=== PATIENT | female | born 1955 | race African-American/Black ===

== ENCOUNTER 2017-12-05 09:30 | Emergency (ER) | payer SELFPAY ==
[2017-12-05 09:39] VITALS: BP 106/63; PULSE 100; TEMP 98.4; BMI 34.8
--- NOTE | 2017-12-05 10:54 | PDOC ---
History of Present Illness - General Chief Complaint: Sore Throat Stated Complaint: WEAKNESS, FEVER Time Seen by Provider: 12/05/17 09:54 History Source: Patient Exam Limitations: No Limitations - History of Present Illness Initial Comments: 12/05/17 10:52 Patient came with brother with complaints of persistent runny nose, sinus congestion, and some intermittent sore throat pain. Was seen by PMD 3 days ago and prescribed ibuprofen and sertraline for ALLERGIC rhinitis. Patient states this had persistent symptoms although has been taking the medications and states this felt feverish but has not states cough with phlegm has productive whitish appearance. 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 Has no exposure to any other ill persons currently. Has no children or grandchildren. Timing/Duration: unsure Severity: mild, moderate Modifying Factors: improves with: medication Associated Symptoms: reports: denies symptoms, cough, fever/chills, malaise Past History - Travel Traveled outside of the country in the last 30 days: No Close contact w/someone who was outside of country & ill: No - Past Medical History Allergies/Adverse Reactions: Allergies Allergy/AdvReac Type Severity Reaction Status Date / Time No Known Allergies Allergy Verified 12/05/17 09:36 Home Medications: Ambulatory Orders Amlodipine Besylate [Norvasc -] 5 mg PO BID 12/05/17 Aspirin [ASA -] 81 mg PO DAILY 12/05/17 Atorvastatin Ca [Lipitor] 20 mg PO HS 12/05/17 Cetirizine HCl 10 mg PO DAILY 12/05/17 COPD: No - Immunization History Immunization Up to Date: Yes - Suicide/Smoking/Psychosocial Hx Smoking History: Never smoked Hx Alcohol Use: No Drug/Substance Use Hx: No Review of Systems - Review of Systems Able to Perform ROS?: Yes Is the patient limited French proficient: Yes Constitutional: Yes: Symptoms Reported HEENTM: Yes: Symptoms Reported Respiratory: Yes: Symptoms reported, See HPI, Cough. No: Wheezing ABD/GI: Yes: See HPI. No: Symptoms Reported Integumentary: Yes: See HPI. No: Symptoms Reported All Other Systems: Reviewed and Negative *Physical Exam - Vital Signs Last Vital Signs Temp Pulse Resp BP Pulse Ox 98.4 F 100 H 18 106/63 95 12/05/17 09:37 12/05/17 09:37 12/05/17 09:37 12/05/17 09:37 12/05/17 09:37 - Physical Exam General Appearance: Yes: Nourished, Appropriately Dressed HEENT: positive: TMs Normal, Pharynx Normal, Nasal Congestion, Rhinorrhea, Sinus Tenderness. negative: Pharyngeal Erythema, Tonsillar Exudate, Tonsillar Erythema Neck: positive: Supple, Lymphadenopathy (R), Lymphadenopathy (L) Respiratory/Chest: positive: Lungs Clear, Normal Breath Sounds Gastrointestinal/Abdominal: positive: Soft. negative: Tender Musculoskeletal: positive: Normal Inspection Extremity: positive: Normal Capillary Refill, Normal Inspection Integumentary: positive: Dry, Warm, Pale Neurologic: positive: acoustical carpenter II-XII NML intact, Fully Oriented, Alert, Normal Response *DC/Admit/Observation/Transfer Diagnosis at time of Disposition: Allergic rhinitis Qualifiers: Allergic rhinitis trigger: other Allergic rhinitis seasonality: unspecified Qualified Code(s): J30.89 - Other allergic rhinitis - Discharge Dispostion Disposition: HOME Condition at time of disposition: Stable Decision to Admit order: No - Referrals - Patient Instructions Printed Discharge Instructions: DI for Allergic Rhinitis Additional Instructions: Rest, drink lots of fluids: Teas, water, soups Saltwater gargles. Consider humidifier in room at night Steamy showers/seem to face break up mucus Avoid contact with allergens, exposure to pollens, close windows on a windy day Lots of handwashing and good hygiene Continue etyl-[id number]-zebmfii medications for symptomatic relief- may use allergic eyedrops for itching I Continue antihistamines daily until pollen season is over; Zyrtec, Claritin, Lulu during the daytime and Benadryl at nighttime as will make sleepy Tylenol or Motrin for fever and pain Followup with private physician in one to 2 days as needed Consider following up with an chief chemist/replenishment merchandising associate for skin testing and possible allergy shots Return to emergency department for worsened symptoms, fevers, dehydration - Post Discharge Activity Forms/Work/School Notes: Back to Work
== END 2017-12-05 10:55 | disposition home or self-care (01) ==
LOC: JERFT 09:30
DX: J30.89 Other allergic rhinitis (principal); Z79.82 Long term (current) use of aspirin
CPT/HCPCS: 99281-25

== ENCOUNTER 2018-10-17 07:07 | Inpatient (IN) | payer OTHER ==
[2018-10-09 13:01] VITALS: BMI 38.7
[~2018-10-17 07:07] MED LIST: CELECOXIB 200 MG CAPSULE PO ONE; GABAPENTIN 300 MG CAPSULE (FP) PO ONE; PANTOPRAZOLE 40 MG TABLET (FP) PO ONE; oxyCODONE HCL 10 MG SUSTAINED ACTING TABLET PO ONE
--- NOTE | 2018-10-17 07:45 | HP ---
Admitting History and Physical - Admission Chief Complaint: left knee osteoarthritis x years History of Present Illness: 63 year old female presents in regard to hes left knee. Patient complains of pain, limited ROM, difficulty ambulating and difficulty completing ADLs. Patient has failed conservative treatment measures including PO medication, injections, activity modification, and exercise programs. At this point, patient would like to proceed with surgical intervention - left total knee arthroplasty. History Source: Patient - Past Medical History Cardiovascular: Yes: HTN, Hyperlipdemia ...: No Musculoskeletal: Yes: Osteoarthritis - Past Surgical History Additional Past Surgical History: See written history & physical. - Smoking History Smoking history: Never smoked Have you smoked in the past 12 months: No - Alcohol/Substance Use Hx Alcohol Use: No Home Medications - Allergies Allergies/Adverse Reactions: Allergies Allergy/AdvReac Type Severity Reaction Status Date / Time No Known Drug Allergies Allergy Verified 10/09/18 12:50 - Home Medications Home Medications: Ambulatory Orders Amlodipine Besylate [Norvasc -] 5 mg PO BID 12/05/17 Aspirin [ASA -] 81 mg PO DAILY 12/05/17 Atorvastatin Ca [Lipitor] 20 mg PO HS 12/05/17 Review of Systems - Review of Systems Musculoskeletal: reports: Crepitus (left knee), Decreased ROM (left knee), Joint Pain (left knee) Physical Examination Constitutional: Yes: Well Nourished, No Distress Eyes: Yes: Conjunctiva Clear HENT: Yes: Atraumatic Neck: Yes: Supple Cardiovascular: Yes: Regular Rate and Rhythm Respiratory: Yes: Regular Gastrointestinal: Yes: Soft ...Rectal Exam: Yes: Deferred Musculoskeletal: Yes: Joint Stiffness (left knee), Joint Swelling (left knee) Assessment/Plan 63 year old female presents in regard to hes left knee. Patient complains of pain, limited ROM, difficulty ambulating and difficulty completing ADLs. Patient has failed conservative treatment measures including PO medication, injections, activity modification, and exercise programs. At this point, patient would like to proceed with surgical intervention - left total knee arthroplasty. Pros, cons, risks, benefits and alternatives of a left total knee arthroplasty was discussed with the patient at length. Patient confirms her understanding and consents to proceed with a left total knee arthroplasty.
[2018-10-17] MEDS ORDERED: SODIUM CHLORIDE 0.9% P/F 10 ML VIAL IJ ONE (07:56)
[2018-10-17] MEDS ORDERED: MIDAZOLAM HCL 2 MG/2 ML SINGLE DOSE VIAL ONE ×2 (07:56→11:13)
[2018-10-17] MEDS ORDERED: BUPIVACAINE LIPOSOME/PF (EXPAREL) 266 MG/20 ML VIAL ONE (07:56)
[2018-10-17] MEDS ORDERED: TRANEXAMIC ACID 1000 MG/10 ML VIAL IVPUSH ONE ×2 (08:00→11:54)
[2018-10-17] MEDS ORDERED: CEFAZOLIN 2 GM in DEXTROSE 5%-WATER - 50 ML IVPB ONE (08:00)
[2018-10-17] MEDS ORDERED: oxyCODONE HCL 10 MG SUSTAINED ACTING TABLET ONE (08:07)
[2018-10-17] MEDS ORDERED: PANTOPRAZOLE 40 MG TABLET (FP) ONE (08:07)
[2018-10-17] MEDS ORDERED: GABAPENTIN 300 MG CAPSULE (FP) ONE (08:07)
[2018-10-17] MEDS ORDERED: CELECOXIB 200 MG CAPSULE ONE (08:08)
[2018-10-17] MEDS ORDERED: TRANEXAMIC ACID 1000 MG/10 ML VIAL ONE ×2 (08:12→08:25)
[2018-10-17] MEDS ORDERED: VANCOMYCIN 1,000 MG VIAL (RESTRICTED TO ID ONLY) ONE (08:13)
[2018-10-17] MEDS ORDERED: ceFAZolin SODIUM 1 GM VIAL ONE ×2 (08:13→08:25)
[2018-10-17] MEDS ORDERED: PROPOFOL 20 ML ONE ×2 (08:25)
[2018-10-17] MEDS ORDERED: ePHEDrine SULFATE 50 MG/1 ML AMPULE ONE (08:25)
[2018-10-17] MEDS ORDERED: SUCCINYLCHOLINE CHLORIDE 200 MG/10 ML VIAL ONE (08:25)
[2018-10-17] MEDS ORDERED: BUPIVACAINE HCL/PF 0.5% (5MG/ML) 10 ML VIAL ONE (09:12)
[2018-10-17] MEDS ORDERED: PHENYLEPHRINE HCL 10 MG/1 ML SINGLE DOSE VIAL ONE (09:32)
[2018-10-17] MEDS ORDERED: VANCOMYCIN 1,000 MG VIAL (RESTRICTED TO ID ONLY) IVPB ONE (11:54)
[2018-10-17] MEDS ORDERED: oxyCODONE HCL 5 MG TABLET PO PRN ×2 (12:06)
[2018-10-17] MEDS ORDERED: ONDANSETRON 4 MG/2 ML VIAL IVPUSH PRN ×2 (12:06→13:14)
[2018-10-17] MEDS ORDERED: LACTATED RINGERS SOLUTION 1,000 ML IV SCH ×2 (12:15→13:15)
[2018-10-17] MEDS ORDERED: MAGNESIUM HYDROX 2400MG/30ML ORAL SUSPENSION 30 ML CUP PO PRN (13:14)
[2018-10-17] MEDS ORDERED: MAG HYDROX/AL HYDROX/SIMETH 30 ML UNIT-DOSE CUP PO PRN (13:14)
[2018-10-17] MEDS ORDERED: KETOROLAC TROMETHAMINE 30 MG/1 ML VIAL IVPUSH SCH (13:15)
[2018-10-17] MEDS ORDERED: traMADol HCL 50 MG TABLET PO SCH (13:15)
[2018-10-17] MEDS: ACETAMINOPHEN 1000 MG/100 ML VIAL (NON FORMULARY) IVPB ONE (13:20)
--- NOTE | 2018-10-17 13:44 | OP ---
Operative Note - Note: Operative Date: 10/17/18 Pre-Operative Diagnosis: Left knee OA Operation: Left TKA Findings: See dictation Post-Operative Diagnosis: Same as Pre-op Surgeon: Rishi Diaz Pad Making Machine Operator: Sandrita Tubbs Anesthesia: Spinal Estimated Blood Loss (mls): 300
[2018-10-17] MEDS: CEFAZOLIN 2 GM/D5W 2 GM/50 ML ML IVPB SCH (17:44)
[2018-10-17] MEDS ORDERED: DEXAMETHASONE SOD PHOSPHATE 10 MG/1 ML VIAL IVPB ONE (20:00)
--- NOTE | 2018-10-17 21:45 | OP ---
DATE OF OPERATION: 10/17/2018 PREOPERATIVE DIAGNOSIS: Left knee osteoarthritis. POSTOPERATIVE DIAGNOSIS: Left knee osteoarthritis. PROCEDURE: Left total knee replacement. ATTENDING: Julieth Pino MD MANUFACTURING GROUP LEADER: JOE Walters ANESTHESIA: Spinal plus sedation. ESTIMATED BLOOD LOSS: 300 mL. COMPLICATIONS: None. DISPOSITION: The patient was transferred to the PACU in stable condition. IMPLANTS USED: [employer] Triathlon size 2 femoral component, size 1 tibial component, 9 mm total stabilized polyethylene component, 29 mm patellar component, two 15-mm acetabular screws. INDICATIONS: This is a 63-year-old female who presented with severe degenerative changes and obvious severe varus deformity of the left knee. She was seen and examined by Dr. Pino in the office and felt to be an appropriate candidate for total knee arthroplasty. The risks, benefits and alternatives to the procedure were explained to the patient and her son, and the patient desired to have the procedure performed. On the day of surgery, the patient was taken to the OR and placed on the OR table. Spinal anesthesia was administered by the anesthesiologist. The patient was then positioned supine on the table and all bony prominences were padded. A tourniquet was placed on the proximal thigh. The left lower extremity was then prepped and draped in the usual sterile fashion and intravenous antibiotics were given for infection prophylaxis. A surgical time-out was then performed with the team, and the patient's identity, procedure, side, availability of implants, and the administration of antibiotics was confirmed. With the knee flexed, a midline incision was made and carried down through the subcutaneous fat to the underlying retinaculum. A medial parapatellar arthrotomy was performed. This was followed by a subperiosteal dissection of the tissue off the proximal and medial tibia. A portion of fat pad was removed from under the patellar tendon, and a small portion of fat was excised off the distal supracondylar femur. The knee was then flexed further and the anterior horn of the lateral meniscus was released from the midline and the anterior cruciate ligament transected. Osteophytes were removed from both the femur and tibia. Grade 4 changes were noted diffusely throughout the knee. There was significant bony erosion, particularly in the medial aspect of the tibia, leaving a significant bone defect. Hohmann retractors were then placed around the distal femur. The starting drill was used to enter the intramedullary canal. The starting point had been chosen by checking the radiographs and anatomy. Proper alignment and intramedullary placement was then confirmed by placing the long narrow dylon into the femur. Next, the distal femoral cutting guide was adjusted and pinned to the femur. The bone resection was assessed using an hubert-wing. An approximately 10-mm distal cut was then made and the cut pieces were measured. Once this was complete, the sizing guide was used to determine which size femoral component should be used. The appropriate 4-in-1 cutting block was then placed at the correct amount of external rotation and pinned in place. Once this was done, Hohmann retractors were used to protect the collateral ligaments, and all appropriate bone cuts were made. Attention was then turned to the tibia. Hohmann retractors were used to translate the tibia anteriorly and protect the collateral ligaments. Medial and lateral menisci were removed. The extramedullary tibial alignment guide was then placed and adjusted for rotation, varus/valgus, and slope. The height of the cutting block was adjusted to the level of the desired bone resection and then pinned in place. The proximal tibia was then cut with a saw and the bone was removed and measured. Once this was completed, much of the damaged tibial bone defect had been removed, but a small portion of defect had remained in the posteromedial corner. The size of the tibia was found to be a size 1 component. The component was pinned in place and we found that just a small portion of the posteromedial aspect of it was unsupported because of the bone defect. We therefore elected to place acetabular screws into the defect so that when the defect was filled with cement, the screws would act to transfer forces like rebar. After drilling and punching the proximal tibia for the keel and stem of the femoral component, the trial femur and trial polyethylene component were placed and soft tissue balance was assessed in both flexion and extension as the knee was taken through a full range of motion. These were found to be appropriate. The knee was stable throughout the full range of motion. The knee was then put into extension and the patella was everted. The synovium around the patella was circumscribed with electrocautery. A caliper was used to measure the patellar thickness and a saw was then used to resect the patella at the chondro-osseous junction. The cut surface was then sized and drilled for the appropriate patellar button, with care taken to medialize it. A trial patella was then placed and the knee was again taken through a full range of motion. The knee was found to have both good balance and good patellar tracking. All bony surfaces were then cleaned with pulsatile lavage and dried. Bone cement was then prepared on the back table, and final components were cemented in place in the usual fashion. Extruded cement was removed. The polyethylene trial was placed, and the knee was put back into extension, and axial pressure was applied for compression while the cement hardened. The patellar button was similarly cemented into place. Once the cement had hardened, the knee was taken through a full range of motion to assess stability, balance, and patellar tracking. These were found to be optimal and the trial polyethylene component was exchanged for the appropriately sized real implant. The wound was then thoroughly irrigated with normal saline. A 3-minute dilute Betadine lavage was performed according to the [place] protocol. Once this was completed, the wound was again thoroughly irrigated with normal saline via pulsatile lavage, and wound closure was begun. Number 1 Vicryl and 0 V-Loc 180 barbed sutures were used to close the arthrotomy. Then 2-0 Vicryl and 2-0 V-Loc 90 sutures were used next in the subcutaneous tissues. The skin was closed using both 3-0 V-Loc 90 suture in a running subcuticular fashion, and also Dermabond skin adhesive. JULIETH PINO M.D. MARIANNA/[id number]
[2018-10-17] MEDS: KETOROLAC TROMETHAMINE 30 MG/1 ML VIAL IVPUSH SCH (22:26)
[2018-10-17] MEDS: ACETAMINOPHEN 325 MG TABLET (FP) PO SCH (22:27)
[2018-10-17] MEDS: traMADol HCL 50 MG TABLET PO SCH (22:27)
[2018-10-17] MEDS: amLODIPine BESYLATE 5 MG TABLET (FP) PO SCH (22:28)
[2018-10-17] MEDS: oxyCODONE HCL 10 MG SUSTAINED ACTING TABLET PO SCH (22:28)
[2018-10-17] MEDS: GABAPENTIN 300 MG CAPSULE (FP) PO SCH (22:28)
[2018-10-17] MEDS: ATORVASTATIN CA 20 MG TABLET (FP) PO SCH (22:28)
[2018-10-17] MEDS: CELECOXIB 200 MG CAPSULE PO SCH (22:28)
[2018-10-17] MEDS: SENNOSIDES/DOCUSATE COMBO (SENNA PLUS) TABLET (UD) PO SCH (22:29)
[2018-10-17] MEDS: ASCORBIC ACID 500 MG TABLET (FP) PO SCH (22:29)
[2018-10-18] MEDS: CEFAZOLIN 2 GM/D5W 2 GM/50 ML ML IVPB SCH (01:24)
[2018-10-18] MEDS: traMADol HCL 50 MG TABLET PO SCH ×4 (03:37→20:21)
[2018-10-18] MEDS: KETOROLAC TROMETHAMINE 30 MG/1 ML VIAL IVPUSH SCH ×2 (03:37→08:51)
[2018-10-18] MEDS: ACETAMINOPHEN 325 MG TABLET (FP) PO SCH ×4 (03:37→20:20)
[2018-10-18 07:42] LABS: HEMATOCRIT 33.3 % (32.4-45.2); MCH 28.9 pg (25.7-33.7); MCHC 33.2 g/dl (32.0-36.0); MEAN CELL VOLUME 87.1 fl (80-96); MEAN PLT VOLUME 7.8 fl (7.5-11.1); PLATELET COUNT 281 K/MM3 (134-434); RBC 3.83 M/mm3 (3.60-5.2); RDW 12.3 % (11.6-15.6); WHITE BLOOD COUNT 7.6 K/mm3 (4.0-10.8)
[2018-10-18 07:51] LABS: CALCIUM 8.9 mg/dl (8.5-10); CREATININE 0.8 mg/dl (0.55-1.3); POTASSIUM 3.9 mmol/L (3.5-5.1)
--- NOTE | 2018-10-18 08:17 | PN ---
Progress Note (short form) - Note Progress Note: ANESTHESIA POSTOP 63 yo female POD#1 s/p L TKA, spinal anesthesia and PNB Patient sitting comfortably in chair. Pain adequately controlled. Tolerating PO. Slept well VSS, Afebrile Continue current care, encouraged IS and ambulation as tolerated and directed by PT and surgical teams.
[2018-10-18] MEDS: ASPIRIN 325 MG TABLET PO SCH (08:52)
[2018-10-18] MEDS: MULTIVITAMINS (DAILY MVI) TABLET (FP) PO SCH (09:41)
[2018-10-18] MEDS: amLODIPine BESYLATE 5 MG TABLET (FP) PO SCH ×2 (09:41→21:27)
[2018-10-18] MEDS: GABAPENTIN 300 MG CAPSULE (FP) PO SCH ×2 (09:41→21:26)
[2018-10-18] MEDS: ASCORBIC ACID 500 MG TABLET (FP) PO SCH ×2 (09:42→21:27)
[2018-10-18] MEDS: oxyCODONE HCL 10 MG SUSTAINED ACTING TABLET PO SCH ×2 (09:42→21:26)
[2018-10-18] MEDS: SENNOSIDES/DOCUSATE COMBO (SENNA PLUS) TABLET (UD) PO SCH ×2 (09:42→21:27)
[2018-10-18] MEDS: CELECOXIB 200 MG CAPSULE PO SCH ×2 (09:42→21:26)
[2018-10-18] MEDS: PANTOPRAZOLE 40 MG TABLET (FP) PO SCH (09:43)
[2018-10-18] MEDS: ATORVASTATIN CA 20 MG TABLET (FP) PO SCH (21:26)
--- NOTE | 2018-10-18 22:21 | PN ---
Progress Note (short form) - Note Progress Note: Pt seen and examined. Doing well. AVSS Selected Entries 10/18/18 10/18/18 14:24 20:29 Temperature 97.4 F L Pulse Rate 72 Respiratory 18 Rate Blood Pressure 105/62 O2 Sat by Pulse 99 Oximetry (%) Oxygen Delivery Room Air Method Laboratory Tests 10/18/18 10/18/18 07:14 07:14 WBC 7.6 Hgb 11.0 Hct 33.3 Plt Count 281 Sodium 135 L Potassium 3.9 Chloride 105 Carbon Dioxide 21 Anion Gap 9 BUN 20.0 H Creatinine 0.8 Gen: NAD LLE: c/d/i, NVID A/P POD#1 s/p L TKA PT/OOB D/C home in AM
--- NOTE | 2018-10-18 22:26 | DS ---
Physical Examination Vital Signs: Vital Signs Temperature 97.4 F L 10/18/18 14:24 Pulse Rate 72 10/18/18 14:24 Respiratory Rate 18 10/18/18 14:24 Blood Pressure 105/62 10/18/18 14:24 O2 Sat by Pulse Oximetry (%) 99 10/18/18 14:24 Labs: CBC, BMP 10/18/18 07:14 10/18/18 07:14 Discharge Summary Reason For Visit: LEFT KNEE DEGENERATIVE JOINT DISEASE Current Active Problems Osteoarthritis of left knee (Acute) Procedures: Principal: Left DANIEL TKA Hospital Course: Admitted for elective surgery. Procedure performed without complications. Pt received postoperative antibiotic prophylaxis and DVT ppx. Ambulated with physical therapy. Stable for discharge home with outpatient followup. Condition: Stable - Instructions Diet, Activity, Other Instructions: Dr. Diaz - Knee Replacement Instructions Keep the Aquacel dressing on until removed by Dr. Diaz in 10-14 days - it is antibacterial and waterproof and you can shower with it on. Call the office for a follow-up appointment with Dr. Diaz in 10-14 days. Take one Aspirin 325mg daily for 6 weeks to prevent blood clots in your legs. After 6 weeks, resume taking your preop dose of 81mg daily. Take one Pantoprazole 40mg daily for 6 weeks to protect against heartburn and ulcers. Take Cephalexin (antibiotic) 3x/day for 10 days to help prevent skin infection. Take Celebrex 200mg twice daily for 30 days to reduce swelling and inflammation. Take a multivitamin, stool softener, and extra Vitamin C supplement daily. For pain: *Mild pain (1-3/10): Take 1 Tramadol tablet every 4 hours as needed. Moderate pain (4-6/10): Take 1 Tramadol tablet and 1 Percocet tablet every 4 hours as needed. Severe pain (7-10/10): Take 1 Tramadol tablet and 2 Percocet tablets every 4 hours as needed. Activity: You can put as much weight on the operative leg as you want. Right after you get home, there will be a physical therapist coming to your house to help you walk around and bend/straighten your knee. After your follow-up appointment, you will be sent for more intensive outpatient physical therapy which will include machines and equipment that the home therapist cannot bring to your house. Always use a walker or cane for balance and to prevent falls. Expect to see swelling/bruising from the operative site all the way down to your toes. The swelling may last several weeks. Wear the compression stocking on the operative side during the day to minimize how much swelling there is in your foot/ankle. Don't wear the stocking at night. You don't have to wear a stocking on the other side. Disposition: VNS/HOME HEALTH CARE - Home Medications Comprehensive Discharge Medication List: Ambulatory Orders Amlodipine Besylate [Norvasc -] 5 mg PO BID 12/05/17 Atorvastatin Ca [Lipitor] 20 mg PO HS 12/05/17 Ascorbic Acid [Vitamin C -] 500 mg PO BID tablet 10/18/18 Aspirin [ASA -] 325 mg PO DAILY@0800 tablet 10/18/18 Celecoxib [CeleBREX -] 200 mg PO BID #60 capsule 10/18/18 Cephalexin Monohydrate [Keflex -] 500 mg PO TID #30 capsule 10/18/18 Multivitamins [Multivit ([facility] Formulary)] 1 tab PO DAILY tab 10/18/18 Oxycodone HCl/Acetaminophen [Percocet 5-325 mg Tablet] 1 - 2 tab PO Q4H PRN #60 tablet MDD 10 10/18/18 Pantoprazole Sodium [Protonix -] 40 mg PO DAILY #40 tablet.ec 10/18/18 Sennosides/Docusate Sodium [Pericolace -] 2 tablet PO BID tablet 10/18/18 traMADol HCL [Ultram -] 50 mg PO Q4H PRN #42 tablet MDD 6 10/18/18
[2018-10-19] MEDS: ACETAMINOPHEN 325 MG TABLET (FP) PO SCH ×2 (01:13→08:50)
[2018-10-19] MEDS: traMADol HCL 50 MG TABLET PO SCH ×2 (04:56→08:51)
[2018-10-19 07:34] VITALS: TEMP 98.5
[2018-10-19] MEDS: ACETAMINOPHEN 1000 MG/100 ML VIAL (NON FORMULARY) IVPB ONE (08:28)
[2018-10-19 08:35] LABS: HEMATOCRIT 30.6 % (32.4-45.2); HEMOGLOBIN 9.8 GM/dl (10.7-15.3); MCH 27.9 pg (25.7-33.7); MCHC 31.8 g/dl (32.0-36.0); MEAN CELL VOLUME 87.8 fl (80-96); MEAN PLT VOLUME 8.6 fl (7.5-11.1); PLATELET COUNT 99 K/MM3 (134-434); RBC 3.49 M/mm3 (3.60-5.2); RDW 12.6 % (11.6-15.6); WHITE BLOOD COUNT 7.5 K/mm3 (4.0-10.8)
[2018-10-19] MEDS: ASPIRIN 325 MG TABLET PO SCH (08:50)
[2018-10-19 10:10] VITALS: BP 113/66; PULSE 83
[2018-10-19] MEDS: amLODIPine BESYLATE 5 MG TABLET (FP) PO SCH (10:13)
[2018-10-19] MEDS: oxyCODONE HCL 10 MG SUSTAINED ACTING TABLET PO SCH (10:13)
[2018-10-19] MEDS: MULTIVITAMINS (DAILY MVI) TABLET (FP) PO SCH (10:14)
[2018-10-19] MEDS: SENNOSIDES/DOCUSATE COMBO (SENNA PLUS) TABLET (UD) PO SCH (10:15)
[2018-10-19] MEDS: PANTOPRAZOLE 40 MG TABLET (FP) PO SCH (10:15)
[2018-10-19] MEDS: CELECOXIB 200 MG CAPSULE PO SCH (10:15)
[2018-10-19] MEDS: ASCORBIC ACID 500 MG TABLET (FP) PO SCH (10:15)
[2018-10-19] MEDS: GABAPENTIN 300 MG CAPSULE (FP) PO SCH (10:15)
--- NOTE | 2018-10-22 16:58 | PATH ---
Surgical Pathology Report Patient Name: GREGG LAUGHLIN Med. Rec. #: [id number] /Age/Gender: 1955 (Age: 63) / F Account: [id number] Location: [facility] MED-SURG Taken: 10/17/2018 Received: 10/17/2018 Reported: 10/22/2018 Physicians: Rishi Diaz M.D. Specimen(s) Received LEFT KNEE BONES Clinical History Left knee degenerative joint disease Final Diagnosis KNEE BONES, LEFT, TOTAL KNEE REPLACEMENT: DEGENERATIVE JOINT DISEASE. Electronically Signed Virginia Amaro M.D. Gross Description Received in formalin labeled "left knee bones," is a 10.5 x 9.5 x 1.5 cm aggregate of miller, irregular portions of bone, consistent with knee bones. There are multiple areas of eburnation present, measuring up to 3.0 cm in greatest dimension. The remaining articular surfaces are miller-yellow and focally granular. The underlying trabecular bone is yellow and hard. Mixer Runner sections are submitted in one cassette, following decalcification. /10/18/2018 [facility]10/18/2018
== END 2018-10-19 11:45 | disposition home health service (06) | DRG 302 ==
LOC: FM/S 07:07
PROVIDERS: ADMIT Student in an Organized Health Care Education/Training Program; ATTEND Student in an Organized Health Care Education/Training Program
PROC: 0SRD069 Replacement of Left Knee Joint with Oxidized Zirconium on Polyethylene Synthetic Substitute, Cemented, Open Approach (ICD-10-PCS; principal; 2018-10-17 09:50)
DX: M17.12 Unilateral primary osteoarthritis, left knee (principal); I10 Essential (primary) hypertension; E78.5 Hyperlipidemia, unspecified
CPT/HCPCS: 36415; 73560-TC-LT-FY; 80048; 85027; 88304-TC; 88311-TC; 94760; 97116-GP; 97163-GP; J0131; J1100

== ENCOUNTER 2018-12-26 09:45 | Inpatient (IN) | payer OTHER ==
[2018-12-16 15:33] VITALS: BMI 38.8
--- NOTE | 2018-12-25 17:12 | HP ---
Admitting History and Physical - Admission Chief Complaint: Right knee osteoarthritis x years History of Present Illness: 63 year old female presents today in regard to her right hknee. Longstanding history of right knee osteoarthritis. Patient complains of pain, limited ROM, difficulty ambulating and difficulty completing ADLs. Patient has failed conservative treatment measures including PO medications, activity modifications , injections and exercise programs. At this point, patient would like to proceed with surgical intervention - right total knee arthroplasty, MAKOplasty. - Past Medical History Cardiovascular: Yes: HTN, Hyperlipdemia Musculoskeletal: Yes: Osteoarthritis - Past Surgical History Additional Past Surgical History: See written history & physical. - Smoking History Smoking history: Never smoked Have you smoked in the past 12 months: No - Alcohol/Substance Use Hx Alcohol Use: No Home Medications - Allergies Allergies/Adverse Reactions: Allergies Allergy/AdvReac Type Severity Reaction Status Date / Time No Known Drug Allergies Allergy Verified 10/09/18 12:50 - Home Medications Home Medications: Ambulatory Orders Amlodipine Besylate [Norvasc -] 5 mg PO BID 12/05/17 Review of Systems - Review of Systems Musculoskeletal: reports: Crepitus (right knee), Decreased ROM (right knee), Joint Pain (right knee), Joint Swelling (right knee) Physical Examination Constitutional: Yes: Well Nourished, No Distress Eyes: Yes: Conjunctiva Clear HENT: Yes: Atraumatic Neck: Yes: Supple Cardiovascular: Yes: Regular Rate and Rhythm Respiratory: Yes: Regular Gastrointestinal: Yes: Soft ...Rectal Exam: Yes: Deferred Musculoskeletal: Yes: Joint Stiffness (right knee), Joint Swelling (right knee) Assessment/Plan 63 year old female presents today in regard to her right hknee. Longstanding history of right knee osteoarthritis. Patient complains of pain, limited ROM, difficulty ambulating and difficulty completing ADLs. Patient has failed conservative treatment measures including PO medications, activity modifications , injections and exercise programs. At this point, patient would like to proceed with surgical intervention - right total knee arthroplasty, MAKOplasty. Pros, cons, risks benefits and alternatives of a right total knee arthroplasty, MAKOplasty was discussed with the patient at length. Patient confirms their understanding and consents to proceed with a right total knee arthroplasty, MAKOplasty.
[~2018-12-26 09:45] MED LIST changes: +TRANEXAMIC ACID 1000 MG/10 ML VIAL IVPUSH ONE
[2018-12-26] MEDS ORDERED: ceFAZolin SODIUM 1 GM VIAL ONE ×3 (11:17→16:36)
[2018-12-26] MEDS ORDERED: VANCOMYCIN 1,000 MG VIAL (RESTRICTED TO ID ONLY) ONE ×2 (11:17→13:24)
[2018-12-26] MEDS ORDERED: MIDAZOLAM HCL 2 MG/2 ML SINGLE DOSE VIAL ONE (11:45)
[2018-12-26] MEDS ORDERED: SODIUM CHLORIDE 0.9% P/F 10 ML VIAL IJ ONE ×2 (11:45→13:32)
[2018-12-26] MEDS ORDERED: BUPIVACAINE LIPOSOME/PF (EXPAREL) 266 MG/20 ML VIAL ONE (11:45)
[2018-12-26] MEDS ORDERED: VANCOMYCIN 1,250 MG in DEXTROSE 5%-WATER - 250 ML IVPB ONE (13:00)
[2018-12-26] MEDS ORDERED: DEXMEDETOMIDINE HCL 200 MCG/2 ML IVPB ONE (13:00)
[2018-12-26] MEDS ORDERED: CEFAZOLIN 2 GM in DEXTROSE 5%-WATER - 50 ML IVPB ONE (13:00)
[2018-12-26] MEDS ORDERED: ePHEDrine SULFATE 50 MG/1 ML AMPULE ONE (13:23)
[2018-12-26] MEDS ORDERED: ONDANSETRON 4 MG/2 ML VIAL IVPUSH PRN ×2 (16:23→19:11)
[2018-12-26] MEDS ORDERED: PROMETHAZINE HCL 25 MG/1 ML VIAL IVPUSH PRN (16:23)
[2018-12-26] MEDS ORDERED: oxyCODONE HCL 5 MG TABLET PO PRN ×2 (16:23)
[2018-12-26] MEDS ORDERED: ACETAMINOPHEN 1000 MG/100 ML VIAL (NON FORMULARY) IVPB ONE ×2 (16:23→19:16)
[2018-12-26] MEDS ORDERED: LACTATED RINGERS SOLUTION 1,000 ML IV SCH ×2 (16:30→19:15)
[2018-12-26] MEDS ORDERED: PROPOFOL 20 ML ONE (17:55)
[2018-12-26] MEDS ORDERED: traMADol HCL 50 MG TABLET ONE (18:48)
[2018-12-26] MEDS ORDERED: KETOROLAC TROMETHAMINE 30 MG/1 ML VIAL ONE (18:48)
[2018-12-26] MEDS: traMADol HCL 50 MG TABLET PO SCH (19:00)
[2018-12-26] MEDS: KETOROLAC TROMETHAMINE 30 MG/1 ML VIAL IVPUSH SCH (19:00)
[2018-12-26] MEDS ORDERED: MAG HYDROX/AL HYDROX/SIMETH 30 ML UNIT-DOSE CUP PO PRN (19:11)
[2018-12-26] MEDS ORDERED: MAGNESIUM HYDROX 2400MG/30ML ORAL SUSPENSION 30 ML CUP PO PRN (19:11)
[2018-12-26] MEDS: SENNOSIDES/DOCUSATE COMBO (SENNA PLUS) TABLET (UD) PO SCH (21:44)
[2018-12-26] MEDS: ASCORBIC ACID 500 MG TABLET (FP) PO SCH (21:44)
[2018-12-26] MEDS: GABAPENTIN 300 MG CAPSULE (FP) PO SCH (21:44)
[2018-12-26] MEDS: CELECOXIB 200 MG CAPSULE PO SCH (21:45)
[2018-12-26] MEDS: oxyCODONE HCL 10 MG SUSTAINED ACTING TABLET PO SCH (21:45)
[2018-12-26] MEDS ORDERED: GABAPENTIN 300 MG CAPSULE (FP) PO SCH (22:00)
[2018-12-27] MEDS: KETOROLAC TROMETHAMINE 30 MG/1 ML VIAL IVPUSH SCH ×3 (01:16→15:00)
[2018-12-27] MEDS: traMADol HCL 50 MG TABLET PO SCH ×4 (01:17→19:02)
[2018-12-27] MEDS ORDERED: VANCOMYCIN HCL 1,250 MG in DEXTROSE 5%-WATER - 250 ML IVPB ONE (02:00)
[2018-12-27] MEDS ORDERED: DEXAMETHASONE SOD PHOSPHATE 10 MG/1 ML VIAL IVPB ONE (03:00)
--- NOTE | 2018-12-27 07:47 | PN ---
Progress Note (short form) - Note Progress Note: ANESTHESIA POST OP 63 YO FEMALE POD#1 S/P TKA, SPINAL ANESTHESIA AND PNB Patient sitting in chair. Pain adequately controlled. No n/v VSS, Afebrile Continue current care. Encouraged IS and active participation in PT. No anesthetic complications
[2018-12-27] MEDS: ASPIRIN 325 MG TABLET PO SCH (07:59)
[2018-12-27 08:01] LABS: HEMATOCRIT 30.3 % (32.4-45.2); HEMOGLOBIN 9.7 GM/dl (10.7-15.3); MCH 27.2 pg (25.7-33.7); MCHC 32.1 g/dl (32.0-36.0); MEAN CELL VOLUME 84.6 fl (80-96); MEAN PLT VOLUME 8.1 fl (7.5-11.1); PLATELET COUNT 246 K/MM3 (134-434); RBC 3.58 M/mm3 (3.60-5.2); RDW 13.6 % (11.6-15.6); WHITE BLOOD COUNT 8.7 K/mm3 (4.0-10.8)
[2018-12-27 08:30] LABS: CALCIUM 8.4 mg/dl (8.5-10); CREATININE 0.7 mg/dl (0.55-1.3); POTASSIUM 3.6 mmol/L (3.5-5.1)
[2018-12-27] MEDS: SENNOSIDES/DOCUSATE COMBO (SENNA PLUS) TABLET (UD) PO SCH ×2 (09:43→22:12)
[2018-12-27] MEDS: GABAPENTIN 300 MG CAPSULE (FP) PO SCH ×2 (09:43→22:13)
[2018-12-27] MEDS: ASCORBIC ACID 500 MG TABLET (FP) PO SCH ×2 (09:43→22:13)
[2018-12-27] MEDS: oxyCODONE HCL 10 MG SUSTAINED ACTING TABLET PO SCH ×2 (09:44→22:13)
[2018-12-27] MEDS: PANTOPRAZOLE 40 MG TABLET (FP) PO SCH (09:44)
[2018-12-27] MEDS: MULTIVITAMINS (DAILY MVI) TABLET (FP) PO SCH (09:44)
[2018-12-27] MEDS: CELECOXIB 200 MG CAPSULE PO SCH ×2 (09:44→22:13)
[2018-12-27] MEDS: amLODIPine BESYLATE 5 MG TABLET (FP) PO SCH (09:46)
--- NOTE | 2018-12-27 10:07 | SPEC ---
DATE OF OPERATION: 12/26/2018 PREOPERATIVE DIAGNOSIS: Right knee osteoarthritis. POSTOPERATIVE DIAGNOSIS: Right knee osteoarthritis. PROCEDURE: Right total knee replacement with MAKOplasty robotic navigation, right knee removal of hardware, right knee patella tendon reinforcement/repair. ATTENDING: Julieth Pino MD GUIDEMAN: JOE White ANESTHESIA: Spinal plus sedation. ESTIMATED BLOOD LOSS: 500 mL. COMPLICATIONS: None. DISPOSITION: The patient was transferred to the PACU in stable condition. IMPLANTS USED: Letty Triathlon size 2 femoral component, Letty Triathlon size 2 tibial component with 50-mm stem and 10-mm medial augment, 29-mm patellar component, 22-mm total stabilized polyethylene component, Marlex hernia repair mesh. INDICATIONS: This is a 63-year-old female who presented to the office with bilateral knee pain and significant varus deformity. She was seen and examined by Dr. Pino and diagnosed with severe osteoarthritis of both knees as well as significant bone erosion and deformity. She underwent a left total knee replacement several months ago and did well postoperatively and had a remarkable recovery. She continued to have severe right knee pain and ambulatory dysfunction. In addition, the right knee was significantly unstable due to significant erosion of the medial tibial plateau as well as chronic injury to the lateral collateral ligament for which she underwent a surgery to place a staple in the ligament in her [place] of [facility] more than 10 years ago. 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 She was initially treated nonoperatively but continued to have severe pain and ambulatory dysfunction. She was, therefore, indicated for a right total knee replacement with MAKOplasty robotic navigation. This would involve reconstruction of the eroded medial tibial condyle as well as removal of the hardware as this would interfere with placement of the total knee replacement. The risks, benefits, and alternatives to the procedure were explained to the patient in great detail as well as to her son, and they both agreed to proceed with the procedure. DESCRIPTION OF PROCEDURE: On the day of surgery, the patient was taken to the operating room and placed on the OR table. Spinal anesthesia was administered by the anesthesiologist. The patient was then positioned supine on the table and all bony prominences were padded. The knee was then prepped and draped in the usual sterile fashion and intravenous antibiotics were given for infection prophylaxis. A surgical time-out was then performed with the team, and the patients identity, procedure, side, availability of implants, and the administration of antibiotics was confirmed. With the knee flexed, a midline incision was made and carried down through the subcutaneous fat to the underlying retinaculum. A medial parapatellar arthrotomy was performed. This was followed by a subperiosteal dissection of the tissue off the proximal, medial tibia. A portion of fat pad was removed from under the patellar tendon, and a small portion of fat was excised off the distal supracondylar femur. Electrocautery and an [employer] bipolar sealing device were used to achieve hemostasis. The knee was then flexed further and the anterior horn of the lateral meniscus was released from the midline. Next, the anterior and posterior cruciate ligaments were transected. Grade 4 changes were noted diffusely throughout the knee. Femoral and tibial checkpoints were then placed in the appropriate location using a mallet. Two parallel bicortical self-drilling pins were placed in the tibial diaphysis after making stab incisions and bluntly dissecting down to bone. Two pins were then placed in the distal supracondylar femur. The Ini[employer] Digital navigation arrays were then attached to both the femoral and tibial pins and the lower extremity was then registered to the robotic navigation device using various joint movements, as well as inputting several dozen reference points. The knee was then taken through a full range of motion with a corrective force applied. Alignment in varus/valgus as well as flexion/extension and soft tissue balance was measured in various positions. The navigation device showed a numerical and graphic representation of the soft tissue balance. The components were repositioned virtually using the software until optimal soft tissue balance was achieved on screen. Once this was accomplished, the final plan was saved and sent to the robot. Self-retaining retractors were then placed at the joint line for exposure and protection of the collateral ligaments. The robot was brought into the sterile field and registered with the navigation device. The robotic arm with attached oscillating saw blade was then used to perform femoral and tibial bone cuts as per the saved software plan. The femoral box cut was made using the appropriately sized manual cutting guide. The knee was then irrigated. Trial components were placed and the knee was taken through a full range of motion to assess soft tissue balance and alignment. The range of motion was found to be excellent and the soft tissue balance was optimal and according to plan. The knee was then put into extension and the patella everted. The synovium around the patella was circumscribed with electrocautery. A caliper was used to measure the patellar thickness and a saw was then used to resect the patella at the chondro-osseous junction. The cut surface was then sized and drilled for the appropriate patellar button, with care taken to medialize it. A trial patella was then placed and the knee was again taken through a full range of motion. The knee was found to have both good balance and good patellar tracking. All of the components were removed except the tibial base plate. The appropriate instrumentation was used to drill and punch the proximal tibia for the keel of the final component. All bony surfaces were then cleaned with pulsatile lavage and dried. Bone cement was then prepared on the back table, and final components were cemented in place in the usual fashion. Extruded cement was removed. The polyethylene trial was placed, the knee was put into extension, and axial pressure was applied for compression while the cement hardened. The patellar button was similarly cemented into place. Once the cement had hardened, the knee was taken through a full range of motion to assess stability, balance, and patellar tracking. This was found to be optimal and the trial polyethylene was exchanged for the appropriately sized real implant. After the tibial cut was made, we noted that a large defect was present in the medial tibial plateau, and the tibial component was largely unsupported on the medial side of the knee. This was too big to fill with cement, so we elected to use a revision component with a 10-mm augment. A 10-mm step cut was made in the medial side of the tibial plateau utilizing the Ini3 Digital robot and software to produce this cut. From here, trial components were assembled, and a 10-mm augment was placed on the trial, and this was found to have good fit and good bony contact, and the tibial component was supported on both the medial and lateral side. The patient had had a previous surgery, and a staple had been placed in the proximal lateral tibia. We determined during trialing for the tibial component that the staple projected into the intramedullary canal and blocked placement of the tibial component of the total knee replacement. Therefore, it would have to be removed. The incision was extended distally, and we undermined subcutaneously along the proximal lateral tibia. An incision was made in the lateral retinaculum of the patellar tendon, and blunt dissection was performed down to bone, and we explored this area and found the staple, which was the anterolateral aspect of the tibia. At no point was the peroneal nerve encountered. We were careful not to damage any soft tissues that appeared to be fragile. For the staple to be removed, we need to make a separate vertical incision through the lateral aspect of the patellar tendon, and once the staple was visualized, osteotomes were used to get under it and then pry it out of the bone, and it was removed in 1 piece without any additional damage to the bone. We did note that there was tearing of the medial aspect of the patellar tendon from all the retraction, and because we had already made a separate incision in the lateral aspect of the tendon in order to remove the staple, there was concern that the tendon was at risk for rupture with ambulation later on. We opted to reinforce the tendon with a Marlex mesh. Marlex rectangular hernia repair mesh was obtained, and it was folded into a long rectangle approximately 3 cm in width, and the edge was sutured with a Vicryl stitch to hold it in this configuration. This was inserted into the tibial canal, and when the tibial component was placed, this was cemented in place under the tibial component and extended out from the proximal tibia and provided an anchor to reinforce the patellar tendon repair. Once components were placed, irrigation was completed, and wound closure was begun. The arthrotomy closure as well as the repair of the damaged portion of the patellar tendon incorporated this Marlex mesh, which was anchored to the tibia, and this provided an underlying reinforcing structure to both take tension off of the patellar tendon and also provide underlying support, which was firmly anchored to the tibia. Because this was a significantly more complicated case than a standard total knee replacement for the reasons outlined above, this case will be billed with a modifier 22. Overall, the surgery took approximately 5 hours, which was significantly longer than the amount of time needed for a standard total knee replacement, and this was due to the extra work involved in the removal of hardware as well as the patellar tendon repair as well as the placement of augments because of the excessive wear and destruction of the proximal tibia. The wound was then thoroughly irrigated with normal saline. A 3-minute dilute Betadine lavage was performed. The knee was again irrigated using a pulsatile lavage device. A periarticular injection was used to locally infiltrate the capsular tissues surrounding the implant and prosthesis. Then No. 1 Polysorb and 0 VLoc 180 barbed sutures were used to close the arthrotomy. Then No. 1 Polysorb and 2-0 VLoc 90 sutures were used in the subcutaneous tissues. Then 4-0 undyed Vicryl and Dermabond skin adhesive was used to close the stab incisions made for the navigation pins. The skin was closed using both 3-0 VLoc 90 suture in a running subcuticular fashion and Dermabond skin adhesive. Once this was completed a sterile Aquacel dressing and compressive Jeremy-wrap was applied. The patient was then awakened and taken to the PACU in stable condition. JULIETH PINO M.D. [id number]
--- NOTE | 2018-12-27 21:55 | PN ---
Progress Note (short form) - Note Progress Note: Pt seen and examined Sunday evening. Doing well. AVSS Selected Entries 12/28/18 12/28/18 12/28/18 06:00 06:58 08:19 Temperature 97.8 F Respiratory 19 Rate Blood Pressure 104/52 L O2 Sat by Pulse 99 99 Oximetry (%) Oxygen Delivery Room Air Room Air Method 12/28/18 09:41 Temperature 98.7 F Respiratory 18 Rate Blood Pressure 106/63 O2 Sat by Pulse 96 Oximetry (%) Oxygen Delivery Room Air Method Laboratory Tests 12/27/18 12/27/18 12/28/18 06:40 06:40 07:25 WBC 8.7 6.6 Hgb 9.7 L 9.2 L Hct 30.3 L 28.4 L Plt Count 246 269 Sodium 137 Potassium 3.6 Chloride 107 Carbon Dioxide 25 Anion Gap 5 L BUN 19.0 H Creatinine 0.7 Est GFR (CKD-EPI)AfAm 106.87 Est GFR (CKD-EPI)NonAf 92.21 Random Glucose 148 H Calcium 8.4 L Gen: NAD RLE: c/d/i, NVID A/P s/p R DANIEL TKA PT/OOB - WBAT RLE D/C home Sunday
[2018-12-27] MEDS: CEFAZOLIN 2 GM/D5W 2 GM/50 ML ML IVPB SCH (22:12)
[2018-12-28] MEDS: traMADol HCL 50 MG TABLET PO SCH ×2 (03:03→08:00)
[2018-12-28] MEDS: CEFAZOLIN 2 GM/D5W 2 GM/50 ML ML IVPB SCH (06:50)
[2018-12-28 08:21] LABS: HEMATOCRIT 28.4 % (32.4-45.2); HEMOGLOBIN 9.2 GM/dl (10.7-15.3); MCH 27.2 pg (25.7-33.7); MCHC 32.4 g/dl (32.0-36.0); MEAN PLT VOLUME 8.2 fl (7.5-11.1); PLATELET COUNT 269 K/MM3 (134-434); RBC 3.39 M/mm3 (3.60-5.2); RDW 13.2 % (11.6-15.6); WHITE BLOOD COUNT 6.6 K/mm3 (4.0-10.8)
[2018-12-28] MEDS: MULTIVITAMINS (DAILY MVI) TABLET (FP) PO SCH (09:23)
[2018-12-28] MEDS: ASPIRIN 325 MG TABLET PO SCH (09:23)
[2018-12-28] MEDS: GABAPENTIN 300 MG CAPSULE (FP) PO SCH (09:23)
[2018-12-28] MEDS: ASCORBIC ACID 500 MG TABLET (FP) PO SCH (09:24)
[2018-12-28] MEDS: amLODIPine BESYLATE 5 MG TABLET (FP) PO SCH (09:24)
[2018-12-28] MEDS: SENNOSIDES/DOCUSATE COMBO (SENNA PLUS) TABLET (UD) PO SCH (09:24)
[2018-12-28] MEDS: CELECOXIB 200 MG CAPSULE PO SCH (09:24)
[2018-12-28] MEDS: PANTOPRAZOLE 40 MG TABLET (FP) PO SCH (09:24)
[2018-12-28] MEDS: oxyCODONE HCL 10 MG SUSTAINED ACTING TABLET PO SCH (09:25)
[2018-12-28 09:42] VITALS: BP 106/63; PULSE 74; TEMP 98.7
--- NOTE | 2018-12-31 09:23 | DS ---
Physical Examination Vital Signs: Vital Signs Temperature 98.7 F 12/28/18 09:41 Pulse Rate 74 12/28/18 09:41 Respiratory Rate 18 12/28/18 09:41 Blood Pressure 106/63 12/28/18 09:41 O2 Sat by Pulse Oximetry (%) 96 12/28/18 09:41 Labs: CBC, BMP 12/28/18 07:25 12/27/18 06:40 Discharge Summary Reason For Visit: RIGHT KNEE OSTEOARTHRITIS Procedures: Principal: Stacy SANCHEZ TKA Hospital Course: Admitted for elective surgery. Procedure performed without complications. Pt received postoperative antibiotic prophylaxis and DVT ppx. Ambulated with physical therapy. Stable for discharge home with outpatient followup. Condition: Stable - Instructions Diet, Activity, Other Instructions: Dr. Diaz - Knee Replacement Instructions Keep the Aquacel dressing on until removed by Dr. Diaz in 10-14 days - it is antibacterial and waterproof and you can shower with it on. Call the office for a follow-up appointment with Dr. Diaz in 10-14 days. [phone] Take one Aspirin 325mg daily for 6 weeks to prevent blood clots in your legs. Take one Pantoprazole 40mg daily for 6 weeks to protect against heartburn and ulcers. Take Cephalexin (antibiotic) 3x/day for 10 days to help prevent skin infection. Take Celebrex 200mg twice daily for 30 days to reduce swelling and inflammation. Take a multivitamin, stool softener, and extra Vitamin C supplement daily. For pain: *Mild pain (1-3/10): Take 1 Tramadol tablet every 4 hours as needed. Moderate pain (4-6/10): Take 1 Tramadol tablet and 1 Percocet tablet every 4 hours as needed. Severe pain (7-10/10): Take 1 Tramadol tablet and 2 Percocet tablets every 4 hours as needed. Activity: You can put as much weight on the operative leg as you want. Right after you get home, there will be a physical therapist coming to your house to help you walk around and bend/straighten your knee. After your follow-up appointment, you will be sent for more intensive outpatient physical therapy which will include machines and equipment that the home therapist cannot bring to your house. Always use a walker or cane for balance and to prevent falls. Expect to see swelling/bruising from the operative site all the way down to your toes. Wear the compression stocking on the operative side during the day to minimize how much swelling there is in your foot/ankle. Don't wear the stocking at night. You don't have to wear a stocking on the other side. Disposition: [facility]/HOME HEALTH CARE - Home Medications Comprehensive Discharge Medication List: Ambulatory Orders Amlodipine Besylate [Norvasc -] 5 mg PO DAILY 12/05/17 Ascorbic Acid [Vitamin C -] 500 mg PO BID tablet 12/28/18 Aspirin [ASA -] 325 mg PO DAILY@0800 #0 tablet 12/28/18 Celecoxib [CeleBREX -] 200 mg PO BID #60 capsule 12/28/18 Cephalexin Monohydrate [Keflex -] 500 mg PO TID #30 capsule 12/28/18 Multivitamins [Multivit ([facility] Formulary)] 1 tab PO DAILY tab 12/28/18 Oxycodone HCl/Acetaminophen [Percocet 5-325 mg Tablet] 1 - 2 tab PO Q4H PRN #60 tablet MDD 10 12/28/18 Pantoprazole Sodium [Protonix -] 40 mg PO DAILY #40 tablet.ec 12/28/18 Sennosides/Docusate Sodium [Pericolace -] 2 tablet PO BID tablet 12/28/18 traMADol HCL [Ultram -] 50 mg PO Q4H PRN #42 tablet MDD 6 12/28/18
--- NOTE | 2018-12-31 10:15 | SURG ---
Surgery Secretary To The Vice President Note Secretary To The Vice President: Li Fletcher PA-C Date of Service: 12/26/18 Diagnosis: Right knee osteoarthritis Procedure: right total knee replacment with MAKOplasty robotic nivigation, right knee removal of hardware, right knee patella tendon reinforcement/repair I was present for the entirety of the operative procedure. For further detail, please refer to operative report. Visit type - Case Type Case Type: Scheduled - Emergency Emergency Visit: No - New patient This patient is new to me today: Yes Date on this admission: 12/26/18 - Critical Care Critical Care patient: No
--- NOTE | 2019-01-02 17:28 | PATH ---
Surgical Pathology Report Patient Name: GREGG LAUGHLIN Med. Rec. #: [id number] /Age/Gender: 1955 (Age: 63) / F Account: [id number] Location: [facility] Taken: 12/26/2018 Received: 12/27/2018 Reported: 01/02/2019 Physicians: Rishi Diaz M.D. Specimen(s) Received RIGHT KNEE BONES Clinical History Right knee osteoarthritis Final Diagnosis RIGHT KNEE BONE, RESECTION: DEGENERATIVE JOINT DISEASE, RIGHT KNEE. Electronically Signed Mohamud Neri M.D. Gross Description Received in formalin, labeled "right knee bones" is an 11.5 x 9 x 2.5 cm aggregate of multiple portions of bone and soft tissue. The tibial plateau measures 9.5 x 8.5 x 1.7 cm. The articular surfaces show areas of eburnation and granularity. The underlying trabecular bone is yellow and hard. [employer] sections are submitted in one cassette following decalcification. AE/01/01/2019 ebram/01/01/2019
== END 2018-12-28 14:00 | disposition home health service (06) | DRG 302 ==
LOC: FM/S 09:45
PROVIDERS: ADMIT Student in an Organized Health Care Education/Training Program; ATTEND Student in an Organized Health Care Education/Training Program
PROC: 8E0Y0CZ Robotic Assisted Procedure of Lower Extremity, Open Approach (ICD-10-PCS; 2018-12-26)
PROC: 0SRC0JZ Replacement of Right Knee Joint with Synthetic Substitute, Open Approach (ICD-10-PCS; principal; 2018-12-26 13:59)
DX: M17.11 Unilateral primary osteoarthritis, right knee (principal); I10 Essential (primary) hypertension; E78.5 Hyperlipidemia, unspecified
CPT/HCPCS: 36415; 73560-TC-RT-FY; 80048; 85027; 88304-TC; 94760; 97110-GP; 97116-GP; 97162-GP; J0131; J1100